=== PATIENT | female | born 1985 ===

== ENCOUNTER 2020-01-22 23:35 | Inpatient (IN) | payer BC ==
[~2020-01-22] VITALS: Ht 170.2 cm; Wt 66.8 kg
--- NOTE | 2020-01-22 23:45 | NUR ---
Pt arrived on unit escorted by staff member and via wheelchair. Pt reports contractions every 4-5 minutes for the last couple of hours. Pt denies any leaking of fluid, vaginal bleeding and reports normal movement. EFM and toco monitors started. SVE by this RN /-2. Vital signs WNL. Plan of care for labor assessment reviewed with pt and at the bedside. Oriented to room, bed and call light within reach.
[2020-01-22 23:57] VITALS: BP 125/72; PULSE 78; TEMP 97.7
[2020-01-23] VITALS (66 sets, daily range): BP systolic 97–140; BP diastolic 53–81; PULSE 71–107; TEMP 97.9–98.7
[2020-01-23] MEDS ORDERED: PRENATAL (00:02)
--- NOTE | 2020-01-23 01:09 | NUR ---
Pt off EFM and toco monitors. Pt sitting birthing ball.
[2020-01-23 02:32] LABS: BASO # 0.1 (0.0-0.2); BASO % 0.3 % (0.0-2.0); EOS % 0.1 % (0-4.0); GRAN # 11.6 (1.4-6.5); GRAN % 75.1 % (42.2-75.2); HEMATOCRIT 35.6 % (37.0-47.0); HEMOGLOBIN 11.9 g/dl (12.5-16.0); LYMPH # 2.8 (1.2-3.4); LYMPH % 18.3 % (20.0-51.0); MEAN CELL VOLUME 88 fl (80.0-100.0); MEAN CORPUSCULAR HEMOGLOBIN 30 pg (27.0-31.0); MEAN CORPUSCULAR HGB CONC 33 g/dl (33.0-37.0); MEAN PLATELET VOLUME 11.2 fl (7.4-10.4); MONO # 0.9 (0.1-0.6); MONO % 5.7 % (1.7-9.3); PLATELET COUNT 256 K/mm3 (130-400); RED BLOOD COUNT 4.04 M/mm3 (4.10-5.30); REDCELL DISTRIBUTION WIDTH-CV 13.6 % (11.5-14.5)
--- NOTE | 2020-01-23 02:45 | NUR ---
Pt up to the bathroom.
--- NOTE | 2020-01-23 02:48 | NUR ---
0248- Pt sitting on the edge of the bed for epidural placement. SHANNEN Vasquez at the bedside. Time out done. 0258- Test dose done per SHANNEN Vasquez. See anesthesia records for details. 0302- Assisted pt back to supine position with left wedge. EFM and toco monitors adjusted.
--- NOTE | 2020-01-23 07:00 | NUR ---
Dr. Naqvi called and updated and ordered to start pitocin. 699: Patient updated and discusses plan of care and pitocin induction. Pitocin started at 2mU per protocol. 724: Dr. Naqvi at nurses station and reviewed. 729: Dr. Naqvi at bedside and assessing patient and FHR monitor. SVE per physician /-2 and AROM at this time with light meconium noted.
--- NOTE | 2020-01-23 10:30 | NUR ---
FHR baseline 145-150bpm with recurrent early decelerations and moderate variabilty noted. 1145: FHR continues to trace recurrent early decelerations. 1305: Dr. Naqvi at bedside and assessing patient and FHR. SVE-8-/0 and no new orders given. 1310: Recurrent early/variable decelerations noted and patient repositioned. 1450: FHR baseline 135-140bpm and recurrent late deceleration noted.
--- NOTE | 2020-01-23 15:20 | NUR ---
SVE-10/100/+1 and gomez catheter removed at this time. Pushing instructions given and questions answered. 1529: Patient begins to push with each contractions. FHR baseline 145-150 and recurrent variable/late decelerations decreasing to 90-115bpm occuring and returning spontaneously to baseline. 1600: FHR baseline 155bpm and recurrent late/variable decelerations noted into the 90-135bpm with spontaneous return to baseline. 1620: FHR baseline increasing to 155-160bpm and recurrent late decelerations decreasing to 100-115bpm with each contraction and spontaneous return to baseline noted. 1645: Patient laboring down at this time. FHR baseline 155-160bpm and recurrent late decelerations noted with moderate variability. 1700: Dr. Naqvi on unit and updated. 1715: Dr. Naqvi at bedside and assessing patient and FHR. SVE with pushing and assessing progress. Dr. Naqvi recommends vacuum assist delivery and patient/spouse agree at this time. Plan and risk factors discussed. FHR baseline 160-165bpm. Maternal temperature 98.1. 1734: Dr. Naqvi at bedside and patient set up for vacuum assisted vaginal delivery. Bed taken apart and pericare done. FHR baseline 155-160bpm 1735: Vacuum applied and patient tolerates well. 1736: Patient begins to push with contraction and traction applied with each push. FHR baseline decreasing to 100bpm for approx. 4 minutes with a spontaneous return to 135bpm. 1742: Patient pushing with each contraction and physician applies traction with each push to vacuum. 1747: Pop off x1 and vacuum reapplied. 1752: Patient continues to push with contractions and traction applied. 1755: Pop off x2 and vacuum reapplied. FHR baseline 120bpm with variable decelerations noted. Dr. Naqvi orders to increase pitocin to 18mU at this time. 1758: Pop off x3 and vacuum reapplied. 1801: Patient pushing and traction applied and vacuum off. FHR decreasing to 100bpm 1804: Delivery of viable female- head followed by body. bulb syringed and to patients abdomen and LAna RN assumes care of . Cord clamped by physician and cut by FOB. Cord blood obtained. 1809: Spontaneous vaginal delivery of placenta and pitocin bolus started at 333 mU per protocol. Fundal massage done, uterine atony noted. Fundal massage continued and firm, bleeding slowing. Dr. Naqvi begins to repair laceration at this time. 1814: Narayan Wong RN at bedside and given report.
--- NOTE | 2020-01-23 21:00 | NUR ---
Pt unable to stand/ambulate at this time. Straight cath done x1 without complications. Shawanda-care done. Assisted pt to the wheelchair for transfer to room 219. Assisted pt to bed. Oriented pt to room, bed and call light within reach. Plan of care reviewed.
[2020-01-24 00:30] VITALS: BP 122/67; PULSE 91; TEMP 98.1
[2020-01-24 05:05] VITALS: BP 110/65; PULSE 84; TEMP 97.7
[2020-01-24 09:30] VITALS: BP 113/64; PULSE 76; TEMP 97.8
[2020-01-24 16:16] VITALS: BP 114/64; PULSE 72; TEMP 98.1
--- NOTE | 2020-01-24 18:35 | NUR ---
Report recieved. at this time. Updated whiteboard and reviewed POC. Denied questions or concerns.
[2020-01-24 19:35] VITALS: BP 125/74; PULSE 94; TEMP 98.3
[2020-01-25 07:15] VITALS: BP 121/75; PULSE 79; TEMP 97.9
[2020-01-25] MEDS ORDERED: PERCOCET 325 MG1 TA2 PO (08:30)
[2020-01-25] MEDS ORDERED: MOTRIN 800800 MG/TAB PO (08:30)
--- NOTE | 2020-01-25 08:54 | NUR ---
Initial visit; Parents thanked Child Support Investigator for offering congratulations and God's blessings for the of their daughter. Child Support Investigator thanked Family for choosing [facility].
== END 2020-01-25 16:20 | disposition home or self-care (01) | DRG 768 ==
LOC: LDRO 23:35 → LDR 01-23 02:11 → OB 01-23 22:47
PROVIDERS: ADMIT Obstetrics & Gynecology
PROC: 10D07Z6 Extraction of Products of Conception, Vacuum, Via Natural or Artificial Opening (ICD-10-PCS; principal; 2020-01-23)
PROC: 0DQR0ZZ Repair Anal Sphincter, Open Approach (ICD-10-PCS; 2020-01-23)
PROC: 10907ZC Drainage of Amniotic Fluid, Therapeutic from Products of Conception, Via Natural or Artificial Opening (ICD-10-PCS; 2020-01-23)
DX: O77.0 Labor and delivery complicated by meconium in amniotic fluid (principal); Z37.0 Single live birth; O70.20 Third degree perineal laceration during delivery, unspecified; Z3A.40 40 weeks gestation of pregnancy
CPT/HCPCS: J2210; J2405; J2590; J2795; J7120